=== PATIENT | male | born 1980 | race Caucasian/White ===

== ENCOUNTER 2022-04-23 09:40 | Outpatient (CLI) | payer BC, SELFPAY ==
[2022-04-23 14:07] LABS: Chloride* 109 mmol/L (96-114); Potassium* 4.6 mmol/L (3.6-5.1); Sodium* 139 mmol/L (135-149)
[2022-04-23 14:10] LABS: Blood Urea Nitrogen* 19 mg/dL (5-24); Carbon Dioxide* 22 mmol/L (20-32); Cholesterol* 209 mg/dL (90-199); Creatinine* 0.7 mg/dL (0.5-1.5); Estimated Glomerular Filt Rate 118 ml/min
[2022-04-23 14:11] LABS: Calcium* 9.4 mg/dL (8.4-10.6); Glucose* 93 mg/dL (60-115); HDL Cholesterol* 48 mg/dL (>=40); LDL Cholesterol Calculated 140 mg/dL (<100); Triglycerides* 107 mg/dL (40-149)
== END 2022-04-23 09:41 | disposition home or self-care (01) ==
PROVIDERS: PCP Family Medicine; Visit Provider Family Medicine
DX: Z00.00 Encounter for general adult medical examination without abnormal findings (principal); E78.1 Pure hyperglyceridemia; I10 Essential (primary) hypertension; Z13.1 Encounter for screening for diabetes mellitus
CPT/HCPCS: 80048; 80061

== ENCOUNTER 2024-04-22 10:24 | Outpatient (CLI) | payer BC, SELFPAY | END 2024-04-22 10:25 | disposition home or self-care (01) | PROVIDERS: PCP Family Medicine; Visit Provider Family Medicine | DX: E78.1 Pure hyperglyceridemia (principal); I10 Essential (primary) hypertension; Z13.29 Encounter for screening for other suspected endocrine disorder | CPT/HCPCS: 80048; 80061; 84439 ==